=== PATIENT | male | born 1980 | race Caucasian/White ===

== ENCOUNTER 2017-02-04 00:35 | Inpatient (IN) | payer MEDICAID ==
[~2017-02-04] VITALS: Ht 188 cm; Wt 112.3 kg
[~2017-02-04 00:35] MED LIST: CLIN300C8 PO; LITH600C PO; OLAN10TA7 PO; PROP20TA PO
[2017-02-04 01:44] LABS: HEMATOCRIT 38.9 % (39.2-51.8); HEMOGLOBIN 13.3 g/dL (13.7-18.0); WHITE BLOOD COUNT 11.6 x10^3/uL (3.4-10)
[2017-02-04 01:53] LABS: BLOOD UREA NITROGEN 40 mg/dL (7-18)
[2017-02-04 02:14] LABS: ACETAMINOPHEN < 2 mcg/mL (10-30)
[2017-02-04 02:43] LABS: DAU SCREEN DISCLAIMER
[2017-02-04] MEDS ORDERED: SODIUM CHLORIDE FLUSH 10ML SYR IVF ONE (03:00)
[2017-02-04] MEDS ORDERED: SODIUM CHLORIDE 0.9% 1,000ML IVBOLUS ONE ×2 (03:00→04:00)
[2017-02-04] MEDS ORDERED: hydrALAzine 20 MG/ML, 1ML IVPush PRN (04:00)
[2017-02-04] MEDS ORDERED: ACETAMINOPHEN 325 MG TABLET PO PRN (04:00)
[2017-02-04] MEDS ORDERED: TEMAZEPAM 15 MG CAPSULE PO PRN (04:00)
[2017-02-04 04:41] LABS: PATH.CAST-FLAG NOT PRESENT; SPERM-FLAG NOT PRESENT; SRC-FLAG NOT PRESENT; XTAL-FLAG NOT PRESENT; YLC-FLAG NOT PRESENT
[2017-02-04] MEDS: SODIUM CHLORIDE 0.9% 1,000 ML IV SCH ×4 (04:45→21:31)
[2017-02-04 04:59] VITALS: BP 135/83
[2017-02-04] MEDS: HEPARIN 5,000 UNITS/ML, 1ML SQ SCH ×3 (05:22→21:29)
[2017-02-04] MEDS: CEFTRIAXONE PMX 1GM/50ML 50 ML IV SCH (06:07)
[2017-02-04 07:05] VITALS: BP 135/74
[2017-02-04] MEDS: PROPRANOLOL 20 MG TABLET PO SCH ×2 (08:39→21:54)
[2017-02-04 12:15] VITALS: BP 119/71
[2017-02-04 16:49] LABS: BLOOD UREA NITROGEN 29 mg/dL (7-18)
[2017-02-04 20:02] VITALS: BP 124/70
[2017-02-04] MEDS: OLANZAPINE 10 MG TABLET PO SCH (21:29)
[2017-02-04] MEDS: LITHIUM CARBONATE 300 MG TABLET.ER PO SCH (21:29)
[2017-02-05 02:56] VITALS: BP 125/69
[2017-02-05] MEDS: SODIUM CHLORIDE 0.9% 1,000 ML IV SCH ×3 (03:00→22:03)
[2017-02-05 05:08] LABS: HEMATOCRIT 33.2 % (39.2-51.8); HEMOGLOBIN 11.7 g/dL (13.7-18.0); WHITE BLOOD COUNT 6.1 x10^3/uL (3.4-10)
[2017-02-05 05:15] LABS: BLOOD UREA NITROGEN 19 mg/dL (7-18)
[2017-02-05] MEDS: HEPARIN 5,000 UNITS/ML, 1ML SQ SCH ×3 (06:00→22:04)
[2017-02-05] MEDS: CEFTRIAXONE PMX 1GM/50ML 50 ML IV SCH (06:00)
[2017-02-05 07:15] VITALS: BP 136/74
[2017-02-05] MEDS: PROPRANOLOL 20 MG TABLET PO SCH ×2 (08:38→22:04)
[2017-02-05 15:45] VITALS: BP 131/80
[2017-02-05 18:41] VITALS: BP 128/79
[2017-02-05 22:00] VITALS: BP 130/86
[2017-02-05] MEDS: NEUTRA PHOS K 250 MG TABLET PO SCH (22:04)
[2017-02-05] MEDS: LITHIUM CARBONATE 300 MG TABLET.ER PO SCH (22:05)
[2017-02-05] MEDS: OLANZAPINE 10 MG TABLET PO SCH (22:05)
[2017-02-06 02:13] VITALS: BP 145/89
[2017-02-06] MEDS: SODIUM CHLORIDE 0.9% 1,000 ML IV SCH ×3 (03:46→14:17)
[2017-02-06] MEDS: CEFTRIAXONE PMX 1GM/50ML 50 ML IV SCH (05:29)
[2017-02-06] MEDS: HEPARIN 5,000 UNITS/ML, 1ML SQ SCH ×3 (05:30→22:03)
[2017-02-06 08:12] VITALS: BP 131/84
[2017-02-06] MEDS: PROPRANOLOL 20 MG TABLET PO SCH ×2 (09:08→22:00)
[2017-02-06] MEDS: NEUTRA PHOS K 250 MG TABLET PO SCH ×2 (09:08→22:00)
[2017-02-06 12:45] VITALS: BP 146/94
[2017-02-06] MEDS ORDERED: LORazepam 1MG TABLET ONE (16:58)
[2017-02-06 19:54] VITALS: BP 150/95
[2017-02-06] MEDS: FLUOXETINE 20 MG CAPSULE PO SCH (22:00)
[2017-02-06] MEDS: OLANZAPINE 10 MG TABLET PO SCH (22:00)
[2017-02-06] MEDS: LITHIUM CARBONATE 300 MG TABLET.ER PO SCH (22:03)
[2017-02-07] MEDS: HEPARIN 5,000 UNITS/ML, 1ML SQ SCH ×3 (05:00→21:00)
[2017-02-07 07:00] VITALS: BP 165/82
[2017-02-07] MEDS: PROPRANOLOL 20 MG TABLET PO SCH (07:53)
[2017-02-07] MEDS: NEUTRA PHOS K 250 MG TABLET PO SCH ×2 (07:53→20:04)
[2017-02-07] MEDS ORDERED: PROPRANOLOL 40 MG TABLET PO SCH (09:00)
[2017-02-07] MEDS: PROPRANOLOL 40 MG TABLET PO SCH (17:26)
[2017-02-07 19:19] VITALS: BP 145/86
[2017-02-07] MEDS: LITHIUM CARBONATE 300 MG TABLET.ER PO SCH (20:04)
[2017-02-07] MEDS: FLUOXETINE 20 MG CAPSULE PO SCH (20:05)
[2017-02-07] MEDS: OLANZAPINE 10 MG TABLET PO SCH (20:07)
[2017-02-08] MEDS: HEPARIN 5,000 UNITS/ML, 1ML SQ SCH (05:00)
[2017-02-08] MEDS: PROPRANOLOL 40 MG TABLET PO SCH (06:16)
[2017-02-08 06:17] VITALS: BP 147/88
[2017-02-08 08:00] VITALS: BP 155/102
== END 2017-02-08 08:40 | DRG 917 ==
LOC: ED 02:59 → SUATTDRO 03:50 → EDIP 04:11 → 4NOR 04:54 → 3E 02-06 18:27
PROVIDERS: ADMIT Internal Medicine; ATTEND Internal Medicine
DX: T43.621A Poisoning by amphetamines, accidental (unintentional), initial encounter (principal); G92 Toxic encephalopathy; N17.0 Acute kidney failure with tubular necrosis; M62.82 Rhabdomyolysis; N39.0 Urinary tract infection, site not specified; R45.851 Suicidal ideations; E86.0 Dehydration; F25.9 Schizoaffective disorder, unspecified; F15.10 Other stimulant abuse, uncomplicated; F17.210 Nicotine dependence, cigarettes, uncomplicated; F31.9 Bipolar disorder, unspecified; F41.1 Generalized anxiety disorder; I10 Essential (primary) hypertension; T50.905A Adverse effect of unspecified drugs, medicaments and biological substances, initial encounter; Z91.14 Patient's other noncompliance with medication regimen
CPT/HCPCS: 36415; 80048; 80178; 80307; 80329; 81001; 82040; 82550; 83735; 84100; 85025; 87086; 96360; J0696; J1644; G0378; G0480; J7030

== ENCOUNTER 2017-02-27 22:12 | Observation (INO) | payer MEDICAID ==
[~2017-02-27] VITALS: Ht 188 cm; Wt 109.0 kg
[2017-02-27] MEDS ORDERED: ZIPR20CA2 PO (22:54)
[2017-02-27] MEDS ORDERED: CARB200T PO (22:54)
[2017-02-27 23:01] LABS: DAU SCREEN DISCLAIMER
[2017-02-27 23:10] LABS: HEMATOCRIT 36.7 % (39.2-51.8); HEMOGLOBIN 12.7 g/dL (13.7-18.0); WHITE BLOOD COUNT 7.8 x10^3/uL (3.4-10)
[2017-02-27 23:20] LABS: BLOOD UREA NITROGEN 27 mg/dL (7-18)
[2017-02-27 23:21] LABS: ACETAMINOPHEN < 2 mcg/mL (10-30)
[2017-02-27] MEDS ORDERED: FLUO20CA19 PO (23:47)
[2017-02-28] MEDS ORDERED: ONDANSETRON ODT 4 MG PO PRN
[2017-02-28] MEDS ORDERED: POTASSIUM CHLORIDE 20 MEQ TAB.ER.PRT PO ONE ×2 (00:30→06:00)
[2017-02-28 01:23] VITALS: BP 143/87
[2017-02-28 07:44] VITALS: BP 118/76
[2017-02-28] MEDS: ZIPRASIDONE 20MG CAPSULE PO SCH (08:33)
[2017-02-28] MEDS: FLUOXETINE 20 MG CAPSULE PO SCH (08:33)
[2017-02-28] MEDS: CARBAMAZEPINE 200 MG TABLET PO SCH (08:33)
[2017-02-28 19:46] VITALS: BP 145/84
[2017-03-01 07:24] VITALS: BP 129/86
[2017-03-01 07:41] VITALS: BP 129/86
[2017-03-01] MEDS: CARBAMAZEPINE 200 MG TABLET PO SCH (08:09)
[2017-03-01] MEDS: ACETAMINOPHEN 325 MG TABLET PO PRN (08:09)
[2017-03-01] MEDS: FLUOXETINE 20 MG CAPSULE PO SCH (08:10)
[2017-03-01] MEDS: ZIPRASIDONE 20MG CAPSULE PO SCH (08:10)
[2017-03-02 08:23] VITALS: BP 133/86
[2017-03-02] MEDS: CARBAMAZEPINE 200 MG TABLET PO SCH (08:26)
[2017-03-02] MEDS: FLUOXETINE 20 MG CAPSULE PO SCH (08:27)
[2017-03-02] MEDS: ZIPRASIDONE 20MG CAPSULE PO SCH (08:27)
[2017-03-02] MEDS: ACETAMINOPHEN 325 MG TABLET PO PRN ×2 (08:34→20:00)
[2017-03-02] MEDS ORDERED: ONDANSETRON ODT 4 MG PO PRN (17:00)
[2017-03-02 19:43] VITALS: BP 157/95
[2017-03-03] MEDS: ACETAMINOPHEN 325 MG TABLET PO PRN ×2 (00:47→08:45)
[2017-03-03 07:36] VITALS: BP 139/97
[2017-03-03] MEDS: FLUOXETINE 20 MG CAPSULE PO SCH (08:45)
[2017-03-03] MEDS: CARBAMAZEPINE 200 MG TABLET PO SCH (08:45)
[2017-03-03] MEDS: ZIPRASIDONE 20MG CAPSULE PO SCH (08:46)
[2017-03-03] MEDS ORDERED: IBUPROFEN 200 MG TABLET PO PRN (16:00)
[2017-03-03 19:21] VITALS: BP 149/96
[2017-03-04 07:59] VITALS: BP 149/91
[2017-03-04] MEDS: CARBAMAZEPINE 200 MG TABLET PO SCH (08:44)
[2017-03-04] MEDS: ZIPRASIDONE 20MG CAPSULE PO SCH (08:44)
[2017-03-04] MEDS: FLUOXETINE 20 MG CAPSULE PO SCH (08:44)
== END 2017-03-04 14:00 ==
LOC: ED 23:32 → EDIP 23:33 → ED 23:48 → 3E 02-28 01:22
PROVIDERS: ADMIT Internal Medicine; ATTEND Internal Medicine
DX: R45.851 Suicidal ideations (principal); E87.6 Hypokalemia; F15.10 Other stimulant abuse, uncomplicated; D64.9 Anemia, unspecified; E44.1 Mild protein-calorie malnutrition; F25.9 Schizoaffective disorder, unspecified; F31.9 Bipolar disorder, unspecified; I10 Essential (primary) hypertension; M62.82 Rhabdomyolysis; E66.9 Obesity, unspecified; F17.210 Nicotine dependence, cigarettes, uncomplicated; F41.9 Anxiety disorder, unspecified; M54.9 Dorsalgia, unspecified; Z91.14 Patient's other noncompliance with medication regimen; Z91.5 Personal history of self-harm
CPT/HCPCS: 36415; 80048; 80307; 80329; 82040; 85025; 99285; G0378; G0479; G0480

== ENCOUNTER 2017-07-16 21:36 | Emergency (ER) | payer MEDICAID ==
[~2017-07-16] VITALS: Ht 188 cm; Wt 103.0 kg
[~2017-07-16 21:36] MED LIST changes: +CARB200T PO; +FLUO20CA19 PO; +ZIPR20CA2 PO
[2017-07-16] MEDS ORDERED: ZIPRASIDONE 20 MG INJ IM ONE (22:00)
[2017-07-16 22:43] LABS: ALANINE AMINOTRANSFERASE 35 U/L (12-78); ALBUMIN 3.2 g/dL (3.4-5.0); ANION GAP 6 mmol/L (5-15); CALCIUM 8.3 mg/dL (8.5-10.1); CHLORIDE 109 mmol/L (98-107); SALICYLATE LEVEL 2.5 mg/dL (2.8-20.0)
[2017-07-16 22:45] LABS: ALKALINE PHOSPHATASE 67 U/L (45-117); BILIRUBIN,TOTAL 0.2 mg/dL (0.2-1.0); CREATININE 0.96 mg/dL (0.7-1.3); TOTAL PROTEIN 6.3 g/dL (6.4-8.2)
[2017-07-16 22:46] LABS: ACETAMINOPHEN < 2 mcg/mL (10-30)
[2017-07-16 22:50] LABS: BASOPHILS # (AUTO) 0.07 x10^3/uL (0-0.1); BASOPHILS % (AUTO) 1 % (0-1); EOSINOPHILS # (AUTO) 0.31 x10^3/uL (0-0.4); EOSINOPHILS % (AUTO) 4 % (1-7); LYMPHOCYTES % (AUTO) 31 % (22-44); MD NO; MEAN CORPUSCULAR HGB CONC 33.7 g/dL (33.2-36.2); MEAN PLATELET VOLUME 8.9 fL (7.4-10.4); MONOCYTES # (AUTO) 0.61 x10^3/uL (0.2-0.8); MONOCYTES % (AUTO) 8 % (2-9); NEUTROPHILS # (AUTO) 4.42 x10^3/uL (1.8-6.8); NEUTROPHILS % (AUTO) 57 % (42-75); PLATELET COUNT 206 x10^3/uL (130-400); RED BLOOD COUNT 4.35 x10^6/uL (4.38-5.82)
[2017-07-17 00:49] LABS: AMPHETAMINE SCREEN, URINE Positive (Negative); BARBITURATE SCREEN, URINE Negative (Negative); BENZODIAZEPINE SCREEN, URINE Negative (Negative); CANNABINOID SCREEN, URINE Negative (Negative); COCAINE SCREEN, URINE Negative (Negative); METHADONE SCREEN, URINE Negative (Negative); OPIATE SCREEN, URINE Negative (Negative)
[2017-07-17 08:31] VITALS: BP 140/68
[2017-07-17] MEDS ORDERED: NICOTINE 21 MG/24 HR PATCH.TD24 TD SCH (10:00)
[2017-07-17] MEDS ORDERED: DIPHENHYDRAMINE 50 MG CAPSULE PO PRN (10:00)
[2017-07-17] MEDS ORDERED: LORazepam 2 MG/ML, 1ML IM PRN (10:00)
[2017-07-17] MEDS ORDERED: ZIPRASIDONE 20MG CAPSULE PO PRN (10:00)
[2017-07-17] MEDS ORDERED: LORazepam 1MG TABLET PO PRN (10:00)
[2017-07-17] MEDS ORDERED: ACETAMINOPHEN 325 MG TABLET PO PRN (10:00)
[2017-07-17] MEDS ORDERED: ZIPRASIDONE 20 MG INJ IM PRN (10:00)
[2017-07-17] MEDS ORDERED: POTASSIUM CHLORIDE 20 MEQ TAB.ER.PRT ONE (10:28)
[2017-07-17] MEDS ORDERED: LITH300C PO (10:34)
[2017-07-17] MEDS ORDERED: ZIPR40CA2 PO (10:34)
[2017-07-17] MEDS ORDERED: POTASSIUM CHLORIDE 20 MEQ TAB.ER.PRT PO SCH (12:00)
== END 2017-07-17 13:17 | disposition home or self-care (01) ==
LOC: ED 23:04 → UNDOADMOB 07-17 03:10 → EDIP 07-17 03:10 → ED 07-17 13:17
DX: F15.159 Other stimulant abuse with stimulant-induced psychotic disorder, unspecified (principal); F17.200 Nicotine dependence, unspecified, uncomplicated; F20.9 Schizophrenia, unspecified; F22 Delusional disorders; F31.9 Bipolar disorder, unspecified; I10 Essential (primary) hypertension
CPT/HCPCS: 36415; 80053; 80307; 80329; 85025; 99284; G0480

== ENCOUNTER 2017-07-28 18:54 | Emergency (ER) | payer MEDICAID ==
[~2017-07-28] VITALS: Ht 182.9 cm; Wt 98.4 kg
[~2017-07-28 18:54] MED LIST changes: +LITH300C PO; +ZIPR40CA2 PO
[2017-07-28 19:09] VITALS: BP 135/69
== END 2017-07-28 21:58 | disposition home or self-care (01) ==
LOC: ED 19:51
DX: M79.675 Pain in left toe(s) (principal); M79.674 Pain in right toe(s); F20.9 Schizophrenia, unspecified; F31.9 Bipolar disorder, unspecified; F41.9 Anxiety disorder, unspecified; I10 Essential (primary) hypertension
CPT/HCPCS: 99281

== ENCOUNTER 2017-08-03 03:17 | Emergency (ER) | payer MEDICAID ==
[~2017-08-03] VITALS: Ht 188 cm; Wt 94.4 kg
[2017-08-03 03:19] VITALS: BP 156/82
== END 2017-08-03 03:34 | disposition left against medical advice (07) ==
LOC: ED 03:28
DX: F41.9 Anxiety disorder, unspecified (principal); Z53.21 Procedure and treatment not carried out due to patient leaving prior to being seen by health care provider

== ENCOUNTER 2017-08-16 21:37 | Observation (INO) | payer MEDICAID ==
[~2017-08-16] VITALS: Ht 188 cm; Wt 94.0 kg
[2017-08-16 22:33] LABS: BASOPHILS # (AUTO) 0.08 x10^3/uL (0-0.1); BASOPHILS % (AUTO) 1 % (0-1); EOSINOPHILS # (AUTO) 0.13 x10^3/uL (0-0.4); EOSINOPHILS % (AUTO) 1 % (1-7); LYMPHOCYTES # (AUTO) 2.92 x10^3/uL (1-3.4); LYMPHOCYTES % (AUTO) 24 % (22-44); MD NO; MEAN CORPUSCULAR HEMOGLOBIN 28.9 pg (27.5-34.5); MEAN CORPUSCULAR HGB CONC 33.8 g/dL (33.2-36.2); MEAN CORPUSCULAR VOLUME 85.4 fL (81-97); MEAN PLATELET VOLUME 7.9 fL (7.4-10.4); MONOCYTES # (AUTO) 0.89 x10^3/uL (0.2-0.8); MONOCYTES % (AUTO) 7 % (2-9); NEUTROPHILS # (AUTO) 8.09 x10^3/uL (1.8-6.8); NEUTROPHILS % (AUTO) 67 % (42-75); PLATELET COUNT 339 x10^3/uL (130-400); RED BLOOD COUNT 5.08 x10^6/uL (4.38-5.82); RED CELL DISTRIBUTION WIDTH 14.2 % (9.4-14.8)
[2017-08-16 22:34] LABS: AMPHETAMINE SCREEN, URINE Positive (Negative); BARBITURATE SCREEN, URINE Negative (Negative); BENZODIAZEPINE SCREEN, URINE Negative (Negative); CANNABINOID SCREEN, URINE Negative (Negative); COCAINE SCREEN, URINE Negative (Negative); METHADONE SCREEN, URINE Negative (Negative); OPIATE SCREEN, URINE Negative (Negative)
[2017-08-16 22:42] LABS: ALBUMIN 3.6 g/dL (3.4-5.0); ANION GAP 6 mmol/L (5-15); CALCIUM 9.2 mg/dL (8.5-10.1); CHLORIDE 109 mmol/L (98-107)
[2017-08-16 22:44] LABS: ALANINE AMINOTRANSFERASE 52 U/L (12-78); ALKALINE PHOSPHATASE 80 U/L (45-117); BILIRUBIN,TOTAL 0.2 mg/dL (0.2-1.0); CREATININE 1.17 mg/dL (0.7-1.3); TOTAL PROTEIN 7.8 g/dL (6.4-8.2)
[2017-08-16 22:45] LABS: ACETAMINOPHEN < 2 mcg/mL (10-30)
[2017-08-16] MEDS ORDERED: LORazepam 1MG TABLET PO ONE (23:00)
[2017-08-16] MEDS ORDERED: LORazepam 1MG TABLET ONE (23:50)
[2017-08-17] MEDS ORDERED: OLANZAPINE 5 MG TABLET PO SCH (02:00)
[2017-08-17] MEDS ORDERED: OLANZAPINE 5 MG TABLET ONE (03:17)
[2017-08-17] MEDS: OLANZAPINE 5 MG TABLET PO SCH ×2 (05:00→19:57)
[2017-08-17 05:22] VITALS: BP 126/78
[2017-08-17] MEDS ORDERED: ACETAMINOPHEN 325 MG TABLET PO PRN (05:30)
[2017-08-17] MEDS ORDERED: DOCUSATE 100 MG CAPSULE PO PRN (05:30)
[2017-08-17] MEDS ORDERED: ONDANSETRON ODT 4 MG PO PRN (05:30)
[2017-08-17 08:45] VITALS: BP 117/73
[2017-08-17 20:07] VITALS: BP 131/81
[2017-08-18 08:39] VITALS: BP 134/80
[2017-08-18 20:15] VITALS: BP 126/72
[2017-08-18] MEDS: OLANZAPINE 5 MG TABLET PO SCH (21:00)
[2017-08-19 08:57] VITALS: BP 133/178
[2017-08-19 20:24] VITALS: BP 138/82
[2017-08-19] MEDS: OLANZAPINE 5 MG TABLET PO SCH (20:42)
[2017-08-20 07:57] VITALS: BP 123/78
[2017-08-20] MEDS: OLANZAPINE 5 MG TABLET PO SCH (20:03)
[2017-08-20 20:05] VITALS: BP 131/88
[2017-08-21 08:29] VITALS: BP 154/100
[2017-08-21 19:58] VITALS: BP 119/76
[2017-08-21] MEDS: OLANZAPINE 5 MG TABLET PO SCH (21:06)
[2017-08-22 08:26] VITALS: BP 139/81
[2017-08-22 19:38] VITALS: BP 132/78
[2017-08-22] MEDS: OLANZAPINE 5 MG TABLET PO SCH (20:47)
[2017-08-23 08:00] VITALS: BP 121/76
[2017-08-23 20:00] VITALS: BP 129/79
[2017-08-23] MEDS: OLANZAPINE 5 MG TABLET PO SCH (21:11)
[2017-08-24 07:30] VITALS: BP 122/83
[2017-08-24 20:03] VITALS: BP 135/85
[2017-08-24] MEDS: OLANZAPINE 5 MG TABLET PO SCH (21:00)
[2017-08-25 07:48] VITALS: BP 139/78
[2017-08-25 19:56] VITALS: BP 129/76
[2017-08-25] MEDS: OLANZAPINE 5 MG TABLET PO SCH (20:54)
[2017-08-26 07:00] VITALS: BP 121/73
== END 2017-08-26 13:20 ==
LOC: ED 23:44 → INTOOBSV 08-17 05:16 → EDIP 08-17 05:16 → 3E 08-17 05:20
PROVIDERS: ADMIT Internal Medicine; ATTEND Family Medicine
DX: R45.851 Suicidal ideations (principal); R45.850 Homicidal ideations; I10 Essential (primary) hypertension; F31.9 Bipolar disorder, unspecified; F20.9 Schizophrenia, unspecified; F17.210 Nicotine dependence, cigarettes, uncomplicated; F15.10 Other stimulant abuse, uncomplicated; Z91.5 Personal history of self-harm
CPT/HCPCS: 36415; 80053; 80307; 80329; 85025; 99285; G0378; G0480

== ENCOUNTER 2017-09-18 22:29 | Emergency (ER) | payer MEDICAID ==
[~2017-09-18] VITALS: Ht 182.9 cm; Wt 88.1 kg
[~2017-09-18 22:29] MED LIST changes: +LEVA15HF4 INH; +LISI1TAB5 PO; +OMEP-110 PO; +SERT100T5 PO; +SIMV20TA3 PO
[2017-09-18 22:31] VITALS: BP 169/83
[2017-09-18] MEDS ORDERED: MIDAZOLAM 1 MG/ML, 2ML ONE (23:32)
[2017-09-18 23:34] LABS: AMPHETAMINE SCREEN, URINE Positive (Negative); BARBITURATE SCREEN, URINE Negative (Negative); BENZODIAZEPINE SCREEN, URINE Negative (Negative); CANNABINOID SCREEN, URINE Negative (Negative); COCAINE SCREEN, URINE Negative (Negative); METHADONE SCREEN, URINE Negative (Negative); OPIATE SCREEN, URINE Negative (Negative)
[2017-09-18] MEDS ORDERED: MIDAZOLAM 1 MG/ML, 2ML IM STA (23:51)
[2017-09-19 00:01] LABS: SALICYLATE LEVEL 2.3 mg/dL (2.8-20.0)
[2017-09-19 00:03] LABS: ACETAMINOPHEN < 2 mcg/mL (10-30)
== END 2017-09-19 01:05 | disposition home or self-care (01) ==
LOC: ED 22:48
DX: F41.1 Generalized anxiety disorder (principal); F15.10 Other stimulant abuse, uncomplicated; F31.9 Bipolar disorder, unspecified; Z79.899 Other long term (current) drug therapy
CPT/HCPCS: 36415; 80307; 80329; 96372; 99284; J2250; G0480

== ENCOUNTER 2017-11-24 17:53 | Emergency (ER) | payer MEDICAID ==
[~2017-11-24] VITALS: Ht 188 cm; Wt 85.9 kg
[2017-11-24 18:34] VITALS: BP 137/83
== END 2017-11-24 20:49 | disposition home or self-care (01) ==
LOC: ED 20:10
DX: J20.8 Acute bronchitis due to other specified organisms (principal); B97.89 Other viral agents as the cause of diseases classified elsewhere; H60.501 Unspecified acute noninfective otitis externa, right ear; I10 Essential (primary) hypertension; F17.200 Nicotine dependence, unspecified, uncomplicated; F20.9 Schizophrenia, unspecified
CPT/HCPCS: 71046; 99284